=== PATIENT | female | born 1940 | race Hispanic/Latino ===

== ENCOUNTER 2017-03-27 11:15 | Emergency (ER) | payer MEDICARE, OTHER ==
[2017-03-27 12:34] LABS: #Eosinphils 0.3 thou/uL (0.0-0.7); #Lymphocytes 1.5 thou/uL (1.20-3.40); #Monocytes 0.6 thou/uL (0.11-0.59); #Neutrophils 7.5 thou/uL (1.40-6.50); %Basophils 0.4 % (0.0-1.0); %Eosinophils 3.4 % (0.0-10.0); %Lymphocytes 14.8 % (21.0-51.0); %Monocytes 6.4 % (0.0-10.0); Hemoglobin 16.8 g/dL (12.0-16.0); Mean Corpuscular HGB CONC 33.6 g/dL (32.0-36.0); Mean Corpuscular Hemoglobin 32.1 pg (27.0-31.0); Mean Corpuscular Volume 95.7 fl (81.0-99.0); Platelet Count 360 thou/uL (130-400); RBC Distribution Width 12.1 % (11.5-14.5); Red Blood Cell (RBC) Count 5.23 mill/uL (4.20-5.40)
[2017-03-27 12:39] LABS: Bilirubin Negative (Negative); Blood, Urine Negative (Negative); Glucose, Urine (Dipstick) Negative (Negative); Leukocyte Small (Negative); Nitrite Negative (Negative); Protein, Urine (Dipstick) Negative (Neg-Trace); Urobilinogen 0.2 mg/dL (0.2-1.0); pH, Urine 6.5 (5.0-9.0)
[2017-03-27 12:43] LABS: Specific Gravity, Urine 1.009 (1.002-1.036)
[2017-03-27 12:45] LABS: Clarity CLEAR (Clear)
[2017-03-27 12:46] LABS: Bacteria/HPF None Seen HPF (None Seen); Hyaline Casts/LPF NONE SEEN LPF (0-3 Hyaline); RBC/HPF None Seen HPF (0-3); Squamous Epithelial 0-3 HPF (0-3); WBC/HPF 0-3 HPF (0-3)
[2017-03-27 12:58] LABS: ALT (SGPT) 22 U/L (8-55); AST (SGOT) 22 U/L (5-34); Albumin 4.4 g/dL (3.4-4.8); Alkaline Phosphatase 94 U/L (40-150); Anion Gap 13 mmol/L (10-20); BUN (Urea Nitrogen) 15 mg/dL (9.8-20.1); Bilirubin, Total 0.9 mg/dL (0.2-1.2); Calc. Creatinine Clearance 0 mL/min (70-130); Calcium 10.2 mg/dL (7.8-10.44); Carbon Dioxide 25 mmol/L (23-31); Chloride 102 mmol/L (98-107); Estimated GFR-MDRD 79; Globulin 4.5 g/dL (2.4-3.5); Glucose 118 mg/dL (83-110); Protein, Total 8.9 g/dL (6.0-8.3); Sodium 136 mmol/L (136-145)
--- NOTE | 2017-03-27 14:11 | CT ---
CT LUMBAR SPINE: 03/27/2017 HISTORY: Low back pain. COMPARISON: None. TECHNIQUE: Serial axial CT imaging at 2.5 mm intervals, from the lower thoracic spine through the lower sacrum, without contrast. Coronal and sagittal reformatted imaging obtained. FINDINGS: There is a partially imaged sliding type hiatal hernia. Hepatic and splenic granulomata are present. Scattered atherosclerotic calcifications of the abdominal aorta and its branches are noted. There is colonic diverticulosis involving the sigmoid colon, incompletely imaged. The bones are diffuse demineralized. Evaluation for central canal and/or neural foraminal stenosis i s limited on routine CT. There is mild retrolisthesis at L2-L3, measuring 5 mm. There is mild anterolisthesis at L4-L5, measu ring 5 mm. At T10-T11 and T11-T12, there is disk space narrowing with anterior osteophyte formation and vacuum d isk formation. At T12-L1, there is disk space narrowing, anterior osteophyte formation, and ventral vacuum disk form ation. No osseous cause of significant central canal or neural foraminal stenosis. At L1-L2, there is mild bilateral facet hypertrophy. Probable small disk bulge present. No osseous cause of significant central canal or neural foraminal stenosis. At L2-L3, there is disk space narrowing, vacuum disk formation, and mild bilateral facet hypertrophy. There is no osseous cause of significant central canal or neural foraminal stenosis. At L3-L4, there is mild bilateral facet hypertrophy. There is mild disk bulge suspected. There is p robable mild right neural foraminal stenosis. No osseous cause of significant central canal stenosis . At L4-L5, there is significant bilateral facet hypertrophy. There is mild disk bulge with no osseous cause of significant central canal or neural foraminal stenosis. At L5-S1, there is disk space narrowing, disk desiccation, and anterior osteophyte formation noted. Bilateral facet hypertrophy is present. There is mild bilateral neural foraminal stenosis, left grea ter than right. No significant central canal stenosis. No acute fracture or evidence of dislocation is seen. IMPRESSION: Demineralized bones with multilevel degenerative change. No evidence for an acute fracture or disloc ation is seen. If symptoms persist, MRI suggested. POS: KATLYN
== END 2017-03-27 14:29 | disposition home or self-care (01) ==
LOC: ERS 11:15
DX: M47.816 Spondylosis without myelopathy or radiculopathy, lumbar region (principal); E78.5 Hyperlipidemia, unspecified; I10 Essential (primary) hypertension
CPT/HCPCS: 36415; 72131; 80053; 81003; 81015; 85025

== ENCOUNTER 2017-03-31 03:24 | Emergency (ER) | payer MEDICARE ==
[2017-03-31] MEDS ORDERED: Ondansetron HCl/PF 4 MG/2 ML Vial ONE (03:55)
[2017-03-31] MEDS ORDERED: Acyclovir 800 mg Tablet PO SCH (04:30)
== END 2017-03-31 07:00 | disposition home or self-care (01) ==
LOC: ERS 03:24
DX: B02.9 Zoster without complications (principal); E78.5 Hyperlipidemia, unspecified; I10 Essential (primary) hypertension; Z79.899 Other long term (current) drug therapy
CPT/HCPCS: 96361; 96374; 96375; J2405

== ENCOUNTER 2017-04-09 18:59 | Emergency (ER) | payer MEDICARE ==
[2017-04-09] MEDS ORDERED: HYDROcodone/Acetaminophen 5/325 mg Tablet ONE (19:34)
--- NOTE | 2017-04-09 20:50 | ULT ---
RIGHT LOWER EXTREMITY VENOUS DOPPLER WITH SPECTRAL ANALYSIS AND COLOR FLOW EVALUATION 04/09/17 HISTORY: Right lower extremity pain with pain extending from the right groin down the right leg. The patient h as associated leg spasms. FINDINGS: Prasad scale, color flow, doppler evaluation, with spectral analysis of the right lower extremity venou s structures is performed with 2D imaging. The right lower extremity, common femoral, superficial fem oral, popliteal, posterior tibial, most proximal greater saphenous and profunda femoral veins are enrico ged. There is normal lumen compressibility, flow and augmentation in the visualized deep venous structures of the right lower extremity. IMPRESSION: No evidence of a DVT involving the visualized deep venous structures right lower extremity. POS: KATLYN
== END 2017-04-09 20:15 | disposition home or self-care (01) ==
LOC: ERS 18:59
DX: B02.29 Other postherpetic nervous system involvement (principal); E78.5 Hyperlipidemia, unspecified; I10 Essential (primary) hypertension

== ENCOUNTER 2018-09-15 16:54 | Inpatient (IN) | payer MEDICARE ==
--- NOTE | 2018-09-15 18:30 | PDOC.FPRHP ---
- History of Present Illness Chief Complaint: Hematuria, Back pain History of Present Illness: Mrs. Lynn is a 78 yo female with PMH significant for HTN, asthma who presented to [facility] with hematuria. This started last Friday with pink urine and the back pain that progressed to 10/10 on Friday. Her back pain is present on both sides but more significant on the right. Today her pain persisted, she became weak, fatigued, and noticed dark red urine which prompted her to be seen by Dr. Westfall. She took aspirin for cooper relief. She endorsed chronic groin pain since shingles in Mar, weakness, fatigue, feeling "wobbly", and urgency, and vaginal dryness. Her urgency has been present since before this visit and is not distressing to her. She denied back pain radiating into her groin, regular UTI's, incontinence, urinary dribbling, change in frequency, diarrhea, constipation, fevers, chills. 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 DNI ED Course: She was directly admitted from [facility] by Dr. Westfall. No interventions were done prior to hospitalization. - Allergies/Adverse Reactions Allergies Allergy/AdvReac Type Severity Reaction Status Date / Time No Known Drug Allergies Allergy Verified 09/15/18 21:20 - Home Medications Medication Instructions Recorded Confirmed Type ALButerol Sulfate [Ventolin Neb] 3 ml NEB Q4HR 09/15/18 09/15/18 History Fish Oil 1,000 mg PO DAILY 09/15/18 09/15/18 History Fluticasone/Salmeterol [Advair 1 puff INH BID 09/15/18 09/15/18 History Diskus 250/50] Losartan/Hydrochlorothiazide 1 tablet PO DAILY 09/15/18 09/15/18 History [Losartan-Hctz 50-12.5 mg Tab] Montelukast Sodium [Singulair] 10 mg PO HS 09/15/18 09/15/18 History Potassium Chloride [Klor-Con 8] 8 meq PO DAILY 09/15/18 09/15/18 History Simvastatin [Zocor] 1 tablet PO HS 09/15/18 09/15/18 History Tiotropium [Spiriva Handihaler] 18 mcg INH DAILY 09/15/18 09/15/18 History Cefdinir [Omnicef] 300 mg PO BID 7 Days #14 cap 09/16/18 Rx - History PMHx: asthma, allergies, HTN, Diverticulosis, HLD, Anxiety PSHx: hysterectomy, cholecystectomy FHx: Brother had brain cancer, Sister DM requiring HD Social: denies smoking history, alcohol Allergies: LING-I - Review of Systems General: reports: fatigue. denies: fever/chills, weight/appetite/sleep changes Gastrointestinal: reports: abdominal pain. denies: nausea, vomiting, diarrhea, constipation, GI bleeding Genitourinary: reports: dysuria. denies: incontinence, polyuria Skin: denies: rashes Neurological: denies: numbness, syncope - Vital signs BP 146/85 HR 114 RR 20 Temp 98.7F O2 Sat: 96% on RA Wt 62kg - Physical Exam Constitutional: NAD, awake, alert and oriented Neck: supple, trachea midline Chest: no-tender to palpation Heart: RRR, normal S1/S2, pulses present, no edema -Heart: systolic murmur at pulmonic post - short, soft, 1/6 Lungs: CTAB, no respiratory distress, good air movement -Lungs: Diffuse, scattered wheezes on inspiration/expiration in all loja Abdomen: soft, bowel sounds present -Abdomen: Bilateral CVA tenderness R>L, tenderness in R suprapubic region/groin Neurological: no focal deficit, CN II-XII intact Skin: no rash/lesions FMR H&P: Results - Labs Result Diagrams: 09/16/18 06:07 09/15/18 19:22 FMR H&P: A/P - Problem List (1) Pyelonephritis Status: Acute Code(s): N12 - TUBULO-INTERSTITIAL NEPHRITIS, NOT SPCF ACUTE OR CHRONIC (2) Hypertension Status: Chronic Code(s): I10 - ESSENTIAL (PRIMARY) HYPERTENSION (3) Hypokalemia Status: Acute Code(s): E87.6 - HYPOKALEMIA (4) Hyperlipidemia Status: Chronic Code(s): E78.5 - HYPERLIPIDEMIA, UNSPECIFIED (5) Asthma Status: Chronic Code(s): J45.909 - UNSPECIFIED ASTHMA, UNCOMPLICATED Qualifiers: Asthma severity: mild - Plan # Pyelonephritis Urine dip: + Nit, 2+ LE, Blood, pH 8.0. Bilateral CVA Tenderness R > L. Stable vitals. AAO x 3. Monitor for possible late decompensation given age, possibility of bacteremia - pending CBC, BMP, U/A, UrineCx, Blood Cx - Bilateral renal US - mild hydro on left - 1 L Bolus NS, 120 mls/hr NS - CT stone protocol # Hematuria Pt was experiencing painless hematuria prior to CVA tenderness. 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 - consider consult to urology for previous painless hematuria. - monitor for gross hematuria # HTN Hx of cough with Lisinopril - continue Losartan-HCTZ # Asthma Mild, diffuse wheeze on inspiration/expiration but no distress - monitor - continue home meds # HLD - continue Simvastatin # Hypokalemia - continue potassium supplements. Monitor on BMP Disposition/LOS: Fluids: 1 L NS Bolus, 120 mls/hr NS maintenance Diet: No restrictions Code Status: DNI FMR H&P: Upper Level - Pertinent history 78 year old female presents as direct admit from [facility] with hematuria, dysuria and back pain. UA at clinic was grossly positive for infection. Patient states she has had lower back and right sided back pain for the past several weeks, but it was severe on Friday to the point that she wasn't even able to move. It has gotten better since that time, but she states she has had blood in her urine since today. Patient has had only one UTI previously which was treated with antibiotics outpatient. Patient denies history of kidney stones. Patient denies smoking history or exposure to dyes. Patient denies fever, chills. She does endorse a several month history of lower abdominal pain, worse in right lower quadrant. - Pertinent findings General: Alert and oriented x3. NAD. Resp: Mild inspiratory wheezes throughout. No rales/rhonchi. No acute respiratory distress. Card: RRR, 2/6 systolic murmur Ext: No edema Abdomen: Suprapubic tenderness, worse on right. CVA tenderness bilaterally R>L. - Plan Date/Time: 09/15/18 1830 IRupali, have evaluated this patient and agree with findings/plan as outlined by pr intern resident. Pertinent changes/additions are listed here. UTI: - Concern for pyelonephritis given severity of symptoms - No history of kidney stones, only one prior UTI treated outpatient years ago - Bilateral renal ultrasound pending - UA grossly infected in clinic, Urine culture straight cath pending - Will consider CT abdomen/pelvis pending renal ultrasound results - Would benefit from cystoscopy for gross hematuria; may be done as outpatient - Will start treatment with ceftriaxone (09/15) Hypokalemia - Mild at 3.4, will replace Asthma - Continue home medications HTN - Continue home medications HLD - Continue home medications DVT: SCD's Code Status: DNI Dispo: Admit to medical. Anticipate LOS >48. Addendum - Attending - Attending Attestation Date/Time: 09/15/18 4525 I personally evaluated the patient and discussed the management with resident team I agree with the History, Examination, Assessment and Plan documented above with any addition or exceptions noted below. 78 yo female with multiple medical conditions is a direct admit from clinic this afternoon. Patient reports over the past 3 to 4 days she has experienced urinary symptoms ( dysuria, gross hematuria, frequency), fever, chills, and abdominal/flank/back pain. Reports on Friday "I thought I was gonna ." Patient states she has never felt this way before. Was sent in clinic today as a new patient. On PE findings MD noted pelvic pain and CVA tenderness. UA was positive for infection. BP was low without comparative readings. Due to concerns for sepsis patient was admitted to [facility]. Vitals reviewed. Agree with PE as documented. Will obs patient overnight. Appears stable at this time. Based on vital signs does not meet sepsis criteria. Will obtain labs. Start rocephin for urinary source. No recent hx of UTIs or previous pyelo per patient. Will add renal sono to make sure no suggestion of complicated infection due to PE findings and significant history of gross hematuria. Follow up with CT scan if needed. Patient without prior history of stones. Osmin
[2018-09-15] MEDS ORDERED: Acetaminophen 325 MG TAB PO PRN (18:47)
[2018-09-15] MEDS ORDERED: Ondansetron PF 4 MG/2 ML Vial IVP PRN (18:47)
[2018-09-15] MEDS ORDERED: Ondansetron ODT 4 MG TAB PO PRN (18:47)
[2018-09-15] MEDS ORDERED: Sodium Chloride 0.9% 1,000 ML IV SCH ×2 (19:00→19:30)
[2018-09-15 19:31] LABS: #Eosinphils 2.1 thou/uL (0.0-0.7); #Lymphocytes 2.3 thou/uL (1.20-3.40); #Monocytes 0.8 thou/uL (0.11-0.59); #Neutrophils 5.6 thou/uL (1.40-6.50); %Basophils 0.4 % (0.0-1.0); %Eosinophils 19.1 % (0.0-10.0); %Lymphocytes 20.9 % (21.0-51.0); %Monocytes 7.2 % (0.0-10.0); %Neutrophils 52.3 % (42.0-75.0); Hemoglobin 15.1 g/dL (12.0-16.0); Mean Corpuscular HGB CONC 33.6 g/dL (32.0-36.0); Mean Corpuscular Hemoglobin 31.1 pg (27.0-31.0); Mean Corpuscular Volume 92.6 fL (78.0-98.0); Mean Platelet Volume 7.5 fL (7.4-10.4); Platelet Count 374 thou/uL (130-400); RBC Distribution Width 11.6 % (11.5-14.5); Red Blood Cell (RBC) Count 4.86 mill/uL (4.20-5.40); White Blood Cell (WBC) Count 10.8 thou/uL (4.8-10.8)
[2018-09-15 19:51] LABS: ALT (SGPT) 20 U/L (8-55); AST (SGOT) 25 U/L (5-34); Alkaline Phosphatase 96 U/L (40-150); Anion Gap 13 mmol/L (10-20); BUN (Urea Nitrogen) 17 mg/dL (9.8-20.1); Bilirubin, Total 0.6 mg/dL (0.2-1.2); Calc. Creatinine Clearance 0 mL/min (70-130); Calcium 10.3 mg/dL (7.8-10.44); Carbon Dioxide 22 mmol/L (23-31); Chloride 104 mmol/L (98-107); Estimated GFR-MDRD 78; Globulin 5.5 g/dL (2.4-3.5); Glucose 109 mg/dL (83-110); Potassium 3.4 mmol/L (3.5-5.1); Protein, Total 9.5 g/dL (6.0-8.3); Sodium 136 mmol/L (136-145)
[2018-09-15] MEDS ORDERED: cefTRIAXone\\ROCEPHIN 1 GM in Sodium Chloride 0.9% 100 ML IVPB SCH (20:00)
[2018-09-15 20:30] LABS: Bilirubin Negative (Negative); Blood, Urine Moderate (Negative); Glucose, Urine (Dipstick) Negative (Negative); Leukocyte Large (Negative); Nitrite Positive (Negative); Protein, Urine (Dipstick) 100 mg/dL (Neg-Trace); Urobilinogen 0.2 mg/dL (Less than 2)
[2018-09-15 20:33] LABS: Clarity Turbid (Clear)
[2018-09-15 20:34] LABS: Bacteria/HPF 4+ HPF (None Seen); Squamous Epithelial 0-3 HPF (0-3); WBC/HPF 21-50 HPF (0-3)
[2018-09-15 21:35] VITALS: BMI 27.4
--- NOTE | 2018-09-15 21:38 | ULT ---
BILATERAL RENAL ULTRASOUND: Date: 09/15/18 INDICATION: Hematuria. FINDINGS: Right kidney measures 10.5 cm length. Mild inferior cortical scarring. No hydronephrosis or mass. Left kidney measures 10.5 cm length. Mild left hydronephrosis. No mass. Urinary bladder is contracted and not well evaluated. IMPRESSION: Mild left hydronephrosis. Etiology not apparent on this study. POS: KATLYN
[2018-09-15] MEDS ORDERED: Potassium Chloride 20 MEQ TAB PO SCH (23:15)
[2018-09-15] MEDS: Sodium Chloride 0.9% 1,000 ML IV SCH (23:41)
[2018-09-15] MEDS: Albuterol Sulfate 2.5 mg/3 ml Neb NEB SCH (23:46)
[2018-09-15] MEDS: Ipratropium Bromide 2.5 ml Neb NEB SCH (23:49)
[2018-09-16] MEDS: Albuterol Sulfate 2.5 mg/3 ml Neb NEB SCH ×2 (03:55→07:14)
--- NOTE | 2018-09-16 05:28 | PDOC.FM ---
- Subjective Subjective: VSS. Afebrile. No acute events overnight. Patient states she is feeling much better. Denies flank pain. Still has some groin pain from where she had shingles. Otherwise, she drank coffee this morning without problem. Denies N/V and dysuria. States her breathing feels fine with regards to her asthma, but sometimes gets worse when it's cold. - Objective MAR Reviewed: Yes Vital Signs & Weight: Vital Signs (12 hours) Temp Pulse Resp BP BP Pulse Ox 09/16/18 04:00 98.0 F 73 18 100/56 L 94 L 09/16/18 00:00 97.7 F 94 18 123/72 92 L 09/15/18 23:49 18 92 L 09/15/18 20:00 97.7 F 87 18 129/80 92 L 09/15/18 18:47 92 L Weight Weight 61.7 kg Result Diagrams: 09/16/18 06:07 09/15/18 19:22 Radiology Reviewed by me: Yes (Renal U/S: mild L hydronephrosis) Radiology: CT Abd/Pelvis: official read pending. Large hiatal hernia seen. No hydronephrosis. CT Stone protocol: official read pending. Phys Exam - Physical Examination Constitutional: NAD HEENT: PERRLA, moist MMs Respiratory: no rales, no rhonchi mild inspiratory wheezing diffusely Cardiovascular: RRR, no significant murmur Gastrointestinal: soft, non-tender, no distention, positive bowel sounds Musculoskeletal: no edema, pulses present Psychiatric: normal affect, A&O x 3 Dx/Plan (1) Pyelonephritis Code(s): N12 - TUBULO-INTERSTITIAL NEPHRITIS, NOT SPCF ACUTE OR CHRONIC Status: Acute (2) Hypokalemia Code(s): E87.6 - HYPOKALEMIA Status: Acute (3) Asthma Code(s): J45.909 - UNSPECIFIED ASTHMA, UNCOMPLICATED Status: Chronic Qualifiers: Asthma severity: mild (4) Hyperlipidemia Code(s): E78.5 - HYPERLIPIDEMIA, UNSPECIFIED Status: Chronic (5) Hypertension Code(s): I10 - ESSENTIAL (PRIMARY) HYPERTENSION Status: Chronic - Plan Plan: 78-y.o. female directly admitted from [facility] for: 1. Pyelonephritis * Renal U/S: mild left hydronephrosis * Ceftriaxone started 09/15 * Urine Cx, Blood Cx pending * CT Stone protocol: official read pending. No intrarenal calculi seen. * D/C ceftriaxone. Start cefdinir 300mg q12h PO to be given this morning. * If patient feeling well this afternoon, we can discharge today. 2. Hypokalemia * Replaced last night. * Recheck today pending. Chronic Problems 3. Asthma * Continue home medications * DuoNebs TID 4. Hyperlipidemia * Continue home medication: simvastatin 10mg po daily 5. HTN * Continue home medication Lisa Patel MD PGY-1 Addendum - Attending - Attending Attestation Date/Time: 09/16/18 1221 I personally evaluated the patient and discussed the management with Dr. Patel. I agree with the History, Examination, Assessment and Plan documented above with any addition or exceptions noted below. Sepsis 2/2 UTI -transition to PO antibiotic -hopefully home tomorrow pending initial c&s and continued improvement.
[2018-09-16] MEDS ORDERED: Mometasone/Formoterol 120 PUFF INHALER INH SCH (06:30)
[2018-09-16 07:10] LABS: Hemoglobin 13.1 g/dL (12.0-16.0); Mean Corpuscular HGB CONC 32.8 g/dL (32.0-36.0); Mean Corpuscular Hemoglobin 30.7 pg (27.0-31.0); Mean Corpuscular Volume 93.6 fL (78.0-98.0); Mean Platelet Volume 7.8 fL (7.4-10.4); Platelet Count 329 thou/uL (130-400); RBC Distribution Width 11.8 % (11.5-14.5); Red Blood Cell (RBC) Count 4.26 mill/uL (4.20-5.40); White Blood Cell (WBC) Count 7.6 thou/uL (4.8-10.8)
[2018-09-16] MEDS: Ipratropium Bromide 2.5 ml Neb NEB SCH (07:12)
[2018-09-16 08:28] LABS: Band 1 % (5-11); Eosinophils 24 % (0-10); Lymphocytes 21 % (21-51); MDiff Complete? YES; Monocytes 4 % (0-10); Neutrophil 49 % (42-75); RBC Morphology Normal; Reactive Lymphocytes 1 % (0-10)
--- NOTE | 2018-09-16 08:42 | CT ---
PRELIMINARY REPORT/[facility]/EMERGENCY AFTER HOURS PROCEDURE: EXAM: CT Abdomen and Pelvis Without Contrast EXAM DATE/TIME: 09/16/2018 12:07 AM CLINICAL HISTORY: 78 years old, female; Abdominal pain; Flank; Right; Patient HX: RT sided pain. Hydronephrosis of kanu dunn. Surgical HX: Colonoscopy, surgical history of cholecystectomy, surgical history of hysterectomy. TECHNIQUE: Imaging protocol: Axial computed tomography images of the abdomen and pelvis without contrast. COMPARISON: No relevant prior studies available. FINDINGS: Lungs: Bibasilar atelectasis. Eventration of the right Mediastinum: Very large hiatal hernia. Liver: Normal. No mass. Gallbladder and bile ducts: The gallbladder has been surgically removed. There is minimal intrahepati c and extrahepatic biliary ductal dilatation most likely from prior cholecystectomy. There is no evid ence of common bile duct stone. Pancreas: Normal. No ductal dilation. Spleen: Normal. No splenomegaly. Adrenals: Normal. No mass. Kidneys and ureters: Normal. No hydronephrosis. Stomach and bowel: Extensive diverticulosis Appendix: No evidence of appendicitis. Intraperitoneal space: Normal. No free air. No significant fluid collection. Vasculature: Normal. No abdominal aortic aneurysm. Lymph nodes: Normal. No enlarged lymph nodes. Bladder: Unremarkable as visualized. Reproductive: The uterus has been surgically removed. Bones/joints: No acute fracture. No dislocation. Soft tissues: Unremarkable. IMPRESSION: 1. Very large hiatal hernia with a significant portion of the stomach in the lower thoracic cavity. 2. There are additional nonemergent findings discussed in the body of the report. Thank you for allowing us to participate in the care of your patient. Dictated and Authenticated by: Luis Danielson MD 09/16/2018 1:07 AM Central Time ([place] & [place]) FINAL REPORT CT ABDOMEN AND PELVIS WITHOUT CONTRAST: Date: 09/15/18 IMPRESSION: I agree with the preliminary report given by Juanita. POS: OFF
[2018-09-16] MEDS: Sodium Chloride 0.9% 1,000 ML IV SCH (08:56)
[2018-09-16] MEDS ORDERED: Fish Oil 1,000 MG CAP PO SCH (09:00)
[2018-09-16] MEDS ORDERED: Phenazopyridine HCl 97.5 MG TABLET PO SCH (09:00)
[2018-09-16] MEDS ORDERED: Spiriva 18 MCG CAP (Box of 5 Caps) INH SCH (09:00)
[2018-09-16] MEDS ORDERED: Non-Formulary Item 1 EACH (Fluticasone/Salmeterol [Advair Diskus 250/50] 1 PUFF) INH SCH (09:00)
[2018-09-16] MEDS ORDERED: Prevnar 13-Val Conj/PF 0.5 ML SYRINGE IM ONE (09:00)
[2018-09-16] MEDS ORDERED: Potassium Chloride 8 MEQ TAB PO SCH (09:00)
[2018-09-16 16:34] VITALS: BP 137/75; TEMP 98
[2018-09-16] MEDS ORDERED: Montelukast Sodium 10 mg Tablet PO SCH (21:00)
[2018-09-16] MEDS ORDERED: Cefdinir 300 MG CAP PO SCH (21:00)
[2018-09-16] MEDS ORDERED: Simvastatin 5 MG TAB PO SCH (21:00)
--- NOTE | 2018-09-18 12:31 | DIS ---
DATE OF ADMISSION: 09/15/2018 DATE OF DISCHARGE: 09/16/2018 RESIDENT: Lisa Patel MD CONSULTS: None. PROCEDURE: CT stone protocol. PRIMARY DIAGNOSIS: Pyelonephritis causing sepsis. SECONDARY DIAGNOSES: 1. Hypokalemia. 2. Asthma. 3. Hyperlipidemia. 4. Hypertension. DISCHARGE MEDICATION: Cefdinir 300 mg p.o. b.i.d. 7 days. DISCONTINUED MEDICATIONS: None. HPI AND HOSPITAL COURSE: This 78-year-old female with past medical history of hypertension and asthma, presented to the [facility] physician clinic complaining of worsening flank pain and hematuria. She had first noticed pink urine last week sometimes and a severe pain, was brought on the day of the admission. She was admitted for meeting sepsis criteria well in the hospital. IV antibiotics were started for presumed complicated urinary tract infection. A CT stone protocol was performed to see if the patient had any nephrolithiasis. Renal ultrasound was also performed and showed mild left hydronephrosis. The CT stone protocol however showed no hydronephrosis and only a large hiatal hernia. UA was markedly suggestive of UTI and urine culture revealed greater than 100,000 colony of Providencia rettgeri. Her blood cultures preliminarily showed no growth at 48 hours. The patient was feeling much better the morning after her admission and no longer needed IV fluids. She was tolerating oral food and water intake. DISPOSITION: Stable. DISCHARGE INSTRUCTIONS: Location: Home. Diet: Heart healthy diet. Activity: As tolerated. Followup: With PCP within 7 days. Possible workup for hematuria is recommended. Job ID: [id number]
== END 2018-09-16 17:24 | disposition home or self-care (01) | DRG 872 ==
LOC: T4-B 16:59
PROVIDERS: ADMIT Family Medicine; ATTEND Family Medicine
DX: A41.9 Sepsis, unspecified organism (principal); N13.6 Pyonephrosis; I10 Essential (primary) hypertension; J45.909 Unspecified asthma, uncomplicated; E78.5 Hyperlipidemia, unspecified; F41.9 Anxiety disorder, unspecified; E87.6 Hypokalemia; Z90.710 Acquired absence of both cervix and uterus; Z90.49 Acquired absence of other specified parts of digestive tract
CPT/HCPCS: 36415; 74176; 76770; 80053; 81001; 83735; 84145; 85025; 87040; 87077; 87086; 87186; 94640; J0696; J3490; J7611; J7620

== ENCOUNTER 2021-07-09 19:53 | Emergency (ER) | payer MEDICARE ==
[2021-07-09 20:17] LABS: #Eosinphils 0.6 thou/uL (0.0-0.7); #Lymphocytes 2.5 thou/uL (1.20-3.40); #Monocytes 0.7 thou/uL (0.11-0.59); #Neutrophils 4.9 thou/uL (1.40-6.50); %Basophils 0.2 % (0.0-1.0); %Neutrophils 55.8 % (42.0-75.0); Hemoglobin 14.2 g/dL (12.0-16.0); Mean Corpuscular HGB CONC 35.5 g/dL (32.0-36.0); Mean Corpuscular Hemoglobin 33.7 pg (27.0-31.0); Mean Platelet Volume 7.4 fL (7.4-10.4); Platelet Count 375 thou/uL (130-400); RBC Distribution Width 11.6 % (11.5-14.5); Red Blood Cell (RBC) Count 4.21 mill/uL (4.20-5.40); White Blood Cell (WBC) Count 8.7 thou/uL (4.8-10.8)
[2021-07-09 20:38] LABS: ALT (SGPT) 15 U/L (8-55); AST (SGOT) 18 U/L (5-34); Alkaline Phosphatase 89 U/L (40-110); Anion Gap 15 mmol/L (10-20); BUN (Urea Nitrogen) 16 mg/dL (9.8-20.1); Calc. Creatinine Clearance 0 mL/min (70-130); Calcium 9.8 mg/dL (7.8-10.44); Carbon Dioxide 24 mmol/L (23-31); Chloride 100 mmol/L (98-107); Globulin 4.2 g/dL (2.4-3.5); Glucose 121 mg/dL (83-110); Magnesium 1.6 mg/dL (1.6-2.6); Potassium 3.2 mmol/L (3.5-5.1); Protein, Total 8.2 g/dL (5.8-8.1); Sodium 136 mmol/L (136-145)
[2021-07-09 21:45] LABS: Bacteria/HPF 4+ HPF (None Seen); Bilirubin Negative (Negative); Blood, Urine Negative (Negative); Clarity Turbid (Clear); Glucose, Urine (Dipstick) Normal (Negative); Ketone, Urine Negative (Negative); Leukocyte 500 Leu/uL (Negative); Nitrite Negative (Negative); Protein, Urine (Dipstick) Negative (Neg-Trace); RBC/HPF 0-3 HPF (0-3); Specific Gravity, Urine 1.007 (1.002-1.036); Squamous Epithelial 0-3 HPF (0-3); Urobilinogen Normal mg/dL (Less than 2); WBC/HPF Greater than 50 HPF (0-3); pH, Urine 6.5 (5.0-9.0)
[2021-07-09] MEDS ORDERED: cefTRIAXone\\ROCEPHIN 1 GM VIAL ONE (22:37)
== END 2021-07-10 00:02 | disposition home or self-care (01) ==
LOC: ERS 19:53
DX: R00.2 Palpitations (principal); N39.0 Urinary tract infection, site not specified; I10 Essential (primary) hypertension; J45.909 Unspecified asthma, uncomplicated; E78.5 Hyperlipidemia, unspecified
CPT/HCPCS: 36415; 71045; 80053; 81003; 81015; 83735; 84484; 85025; 93005; 96365; J0696

== ENCOUNTER 2022-04-18 08:05 | Outpatient (CLI) | payer MEDICARE | END 2022-04-18 08:06 | disposition home or self-care (01) | LOC: RAD 08:05 | PROVIDERS: ATTEND Internal Medicine Critical Care Medicine | DX: R06.00 Dyspnea, unspecified (principal); K44.9 Diaphragmatic hernia without obstruction or gangrene | CPT/HCPCS: 71046 ==

== ENCOUNTER 2022-05-21 14:46 | Outpatient (CLI) | payer MEDICARE | END 2022-05-21 14:47 | disposition home or self-care (01) | LOC: BICRAD 14:46 | PROVIDERS: ATTEND Emergency Medicine | DX: J45.41 Moderate persistent asthma with (acute) exacerbation (principal); R09.89 Other specified symptoms and signs involving the circulatory and respiratory systems; K44.9 Diaphragmatic hernia without obstruction or gangrene | CPT/HCPCS: 71046 ==

== ENCOUNTER 2022-06-21 15:53 | Inpatient (IN) | payer MEDICARE ==
[2022-06-21] MEDS ORDERED: Ipratropium/Albuterol 3 ML NEB NEB SCH ×2 (17:15→19:00)
[2022-06-21 17:21] VITALS: BMI 24.6
[2022-06-21] MEDS ORDERED: Acetaminophen 325 MG TAB PO PRN (17:39)
[2022-06-21] MEDS ORDERED: Loratadine 10 MG TAB PO SCH (17:45)
[2022-06-21 17:54] LABS: #Basophils 0.1 thou/uL (0.0-0.2); #Lymphocytes 1.9 thou/uL (1.20-3.40); #Monocytes 0.7 thou/uL (0.11-0.59); #Neutrophils 4.2 thou/uL (1.40-6.50); %Basophils 0.7 % (0.0-1.0); %Eosinophils 13.3 % (0.0-10.0); %Lymphocytes 23.9 % (21.0-51.0); %Monocytes 8.9 % (0.0-10.0); %Neutrophils 53.1 % (42.0-75.0); Mean Corpuscular HGB CONC 34.9 g/dL (32.0-36.0); Mean Corpuscular Hemoglobin 33.5 pg (27.0-31.0); Mean Platelet Volume 7.9 fL (7.4-10.4); Platelet Count 342 10x3/uL (130-400); RBC Distribution Width 11.6 % (11.5-14.5); Red Blood Cell (RBC) Count 4.19 mill/uL (4.20-5.40); White Blood Cell (WBC) Count 7.8 10x3/uL (4.8-10.8)
[2022-06-21 18:12] LABS: ALT (SGPT) 10 U/L (8-55); AST (SGOT) 20 U/L (5-34); Albumin 3.8 g/dL (3.4-4.8); Alkaline Phosphatase 98 U/L (40-110); Anion Gap 17 mmol/L (10-20); BUN (Urea Nitrogen) 22 mg/dL (9.8-20.1); Bilirubin, Total 0.5 mg/dL (0.2-1.2); Calc. Creatinine Clearance 49 mL/min (70-130); Carbon Dioxide 23 mmol/L (23-31); Chloride 101 mmol/L (98-107); Estimated GFR 76; Globulin 4.9 g/dL (2.4-3.5); Glucose 110 mg/dL (83-110); Potassium 3.7 mmol/L (3.5-5.1); Protein, Total 8.7 g/dL (5.8-8.1); Sodium 137 mmol/L (136-145)
[2022-06-21] MEDS: Mometasone 200 MCG/Formoterol 5 MCG 120 PUFF INHALER INH SCH (18:52)
[2022-06-21] MEDS: Montelukast Sodium 10 mg Tablet PO SCH (20:00)
[2022-06-21] MEDS: methylPREDNISolone Sod Succ 40 MG VIAL IVP SCH (20:01)
[2022-06-21] MEDS: Simvastatin 10 MG TAB PO SCH (20:02)
[2022-06-22 05:38] LABS: #Lymphocytes 0.6 thou/uL (1.20-3.40); #Monocytes 0.1 thou/uL (0.11-0.59); #Neutrophils 3.7 thou/uL (1.40-6.50); %Basophils 0.2 % (0.0-1.0); %Eosinophils 0.3 % (0.0-10.0); %Lymphocytes 14.7 % (21.0-51.0); %Monocytes 1.4 % (0.0-10.0); %Neutrophils 83.4 % (42.0-75.0); Hemoglobin 13.1 g/dL (12.0-16.0); Mean Corpuscular Hemoglobin 33.9 pg (27.0-31.0); Mean Corpuscular Volume 97.1 fl (78.0-98.0); Mean Platelet Volume 8.2 fL (7.4-10.4); Platelet Count 317 10x3/uL (130-400); RBC Distribution Width 11.6 % (11.5-14.5); Red Blood Cell (RBC) Count 3.85 mill/uL (4.20-5.40); White Blood Cell (WBC) Count 4.4 10x3/uL (4.8-10.8)
[2022-06-22 05:58] LABS: ALT (SGPT) 11 U/L (8-55); AST (SGOT) 17 U/L (5-34); Albumin 3.5 g/dL (3.4-4.8); Alkaline Phosphatase 81 U/L (40-110); Anion Gap 15 mmol/L (10-20); BUN (Urea Nitrogen) 28 mg/dL (9.8-20.1); Bilirubin, Total 0.4 mg/dL (0.2-1.2); Calc. Creatinine Clearance 41 mL/min (70-130); Calcium 9.8 mg/dL (7.8-10.44); Carbon Dioxide 23 mmol/L (23-31); Chloride 99 mmol/L (98-107); Estimated GFR 61; Globulin 4.5 g/dL (2.4-3.5); Glucose 214 mg/dL (83-110); Potassium 4.3 mmol/L (3.5-5.1); Sodium 133 mmol/L (136-145)
[2022-06-22] MEDS: Mometasone 200 MCG/Formoterol 5 MCG 120 PUFF INHALER INH SCH ×2 (07:51→19:05)
[2022-06-22] MEDS: Potassium Chloride 8 MEQ TAB PO SCH (09:52)
[2022-06-22] MEDS: Loratadine 10 MG TAB PO SCH (09:53)
[2022-06-22] MEDS: Furosemide 20 MG TAB PO SCH (09:53)
[2022-06-22] MEDS: methylPREDNISolone Sod Succ 40 MG VIAL IVP SCH ×2 (09:53→20:06)
[2022-06-22] MEDS: Nebivolol HCl 5 MG TAB PO SCH (09:53)
[2022-06-22] MEDS: Simvastatin 10 MG TAB PO SCH (20:06)
[2022-06-22] MEDS: Montelukast Sodium 10 mg Tablet PO SCH (20:06)
[2022-06-23 05:27] LABS: #Lymphocytes 1.2 thou/uL (1.20-3.40); #Monocytes 0.3 thou/uL (0.11-0.59); #Neutrophils 12.5 thou/uL (1.40-6.50); %Basophils 0.1 % (0.0-1.0); %Eosinophils 0.1 % (0.0-10.0); %Lymphocytes 8.3 % (21.0-51.0); %Monocytes 2.4 % (0.0-10.0); Hemoglobin 12.8 g/dL (12.0-16.0); Mean Corpuscular HGB CONC 35.9 g/dL (32.0-36.0); Mean Corpuscular Hemoglobin 34.6 pg (27.0-31.0); Mean Corpuscular Volume 96.3 fl (78.0-98.0); Mean Platelet Volume 8.6 fL (7.4-10.4); Platelet Count 309 10x3/uL (130-400); RBC Distribution Width 11.6 % (11.5-14.5); Red Blood Cell (RBC) Count 3.71 mill/uL (4.20-5.40)
[2022-06-23 06:43] LABS: ALT (SGPT) 11 U/L (8-55); AST (SGOT) 14 U/L (5-34); Albumin 3.5 g/dL (3.4-4.8); Alkaline Phosphatase 76 U/L (40-110); Anion Gap 17 mmol/L (10-20); BUN (Urea Nitrogen) 45 mg/dL (9.8-20.1); Bilirubin, Total 0.4 mg/dL (0.2-1.2); Calc. Creatinine Clearance 37 mL/min (70-130); Calcium 9.9 mg/dL (7.8-10.44); Carbon Dioxide 22 mmol/L (23-31); Chloride 99 mmol/L (98-107); Estimated GFR 55; Globulin 4.2 g/dL (2.4-3.5); Glucose 160 mg/dL (83-110); Potassium 4.6 mmol/L (3.5-5.1); Protein, Total 7.7 g/dL (5.8-8.1); Sodium 133 mmol/L (136-145)
[2022-06-23] MEDS: Mometasone 200 MCG/Formoterol 5 MCG 120 PUFF INHALER INH SCH (07:10)
[2022-06-23 08:34] VITALS: BP 134/59; TEMP 97.9
[2022-06-23] MEDS: methylPREDNISolone Sod Succ 40 MG VIAL IVP SCH (08:54)
[2022-06-23] MEDS: Nebivolol HCl 5 MG TAB PO SCH (08:55)
[2022-06-23] MEDS: Potassium Chloride 8 MEQ TAB PO SCH (08:55)
[2022-06-23] MEDS: Furosemide 20 MG TAB PO SCH (08:55)
[2022-06-23] MEDS: Loratadine 10 MG TAB PO SCH (08:55)
== END 2022-06-23 09:43 | disposition home or self-care (01) | DRG 189 ==
LOC: 2SW 15:53 → OBSVTOIN 23:12
PROVIDERS: ADMIT Student in an Organized Health Care Education/Training Program; ATTEND Student in an Organized Health Care Education/Training Program
DX: J96.01 Acute respiratory failure with hypoxia (principal); J44.1 Chronic obstructive pulmonary disease with (acute) exacerbation; J45.901 Unspecified asthma with (acute) exacerbation; I50.32 Chronic diastolic (congestive) heart failure; Z66 Do not resuscitate; I11.0 Hypertensive heart disease with heart failure; E78.5 Hyperlipidemia, unspecified; Z79.51 Long term (current) use of inhaled steroids; Z79.899 Other long term (current) drug therapy
CPT/HCPCS: 36415; 71046; 80053; 85025; 93005; 93010; 94640; J1650; J2920; J7611; J7620

== ENCOUNTER 2023-08-13 01:16 | Emergency (ER) | payer MEDICARE | END 2023-08-13 03:40 | disposition home or self-care (01) | LOC: ERS 01:16 | DX: S40.861A Insect bite (nonvenomous) of right upper arm, initial encounter (principal); L03.113 Cellulitis of right upper limb; I10 Essential (primary) hypertension; W57.XXXA Bitten or stung by nonvenomous insect and other nonvenomous arthropods, initial encounter | CPT/HCPCS: 99283 ==